=== PATIENT | male | born 1970 | race Caucasian/White ===

== ENCOUNTER 2024-09-06 16:43 | Inpatient (IN) | payer MEDICAID ==
[~2024-09-06] VITALS: Ht 182.9 cm; Wt 72.6 kg
[~2024-09-06 16:43] MED LIST: KEP500T PO; OLAN10TA40 PO; TRAZ-256 PO
[2024-09-06] MEDS ORDERED: potassium Cl 20 mEq SR tablet PO PRN ×2 (16:55)
[2024-09-06] MEDS ORDERED: mag hydrox/Alum hydrox/simeth 30ml oral suspension PO PRN (16:55)
[2024-09-06] MEDS ORDERED: potassium Cl 40MEQ/1/2NS 520ml 520 ML IV PRN (16:55)
[2024-09-06] MEDS ORDERED: magnesium sulf-water 4G/100mL 100 ML IV PRN (16:55)
[2024-09-06] MEDS ORDERED: magnesium hydroxide 30ml (MOM) UD suspension PO PRN (16:55)
[2024-09-06] MEDS ORDERED: ondansetron/PF 4mg/2ml inj IV PRN (16:55)
[2024-09-06] MEDS ORDERED: magnesium sulf-water 2g/50mL 50 ML IV PRN (16:55)
[2024-09-06] MEDS ORDERED: loperamide 2mg capsule PO PRN (17:15)
[2024-09-06 19:15] VITALS: BP 97/62; PULSE 83; RESP 20; TEMP 98.7; O2SAT 94
[2024-09-06 20:00] VITALS: RESP 15; O2SAT 97
[2024-09-06] MEDS: docusate sod 100mg capsule PO SCH ×2 (20:00→20:16)
[2024-09-06] MEDS: K and/or MAG REPLACEMENT MC SCH (20:00)
[2024-09-06 20:01] LABS: BASOPHILS # (AUTO) 0.1 X10'3 (0-0.2); BASOPHILS % (AUTO) 0.7 % (0-1); EOSINOPHILS # (AUTO) 0.3 X10'3 (0-0.9); HEMATOCRIT 38.9 % (42.0-52.0); HEMOGLOBIN 13.5 g/dl (14.0-17.9); LYMPHOCYTES # (AUTO) 2.2 X10'3 (1.1-4.8); LYMPHOCYTES % (AUTO) 29.2 % (21-51); MEAN CORPUSCULAR HGB CONC 34.7 g/dL (33.0-36.5); MEAN CORPUSCULAR VOLUME 83.4 FL (78-98); MEAN PLATELET VOLUME 6.9 FL (7.4-10.4); MONOCYTES # (AUTO) 0.5 X10'3 (0-0.9); MONOCYTES % (AUTO) 7.1 % (2-12); NEUTROPHILS # (AUTO) 4.5 X10'3 (1.8-7.7); PLATELET COUNT 298 X10'3 (140-440); RED BLOOD COUNT 4.67 X10'6 (4.70-6.10); RED CELL DISTRIBUTION WIDTH 14.4 % (11.5-14.5); WHITE BLOOD COUNT 7.6 X10'3 (4.5-11.0)
[2024-09-06] MEDS: levetiracetam 250mg tablet PO SCH (20:15)
[2024-09-06] MEDS: benztropine 1mg tablet PO SCH (20:15)
[2024-09-06] MEDS: traZODone 50mg tablet PO SCH (20:15)
[2024-09-06 20:16] LABS: ALANINE AMINOTRANSFERASE 12 U/L (12-78); ALBUMIN 3.4 G/DL (3.4-5.0); ALKALINE PHOSPHATASE 89 IU/L (46-116); ANION GAP 9 (8-16); ASPARTATE AMINO TRANSFERASE 19 U/L (10-37); BILIRUBIN,TOTAL 0.4 MG/DL (0.1-1.0); BLOOD UREA NITROGEN 16 MG/DL (7-18); BUN/CREATININE RATIO 19.3 (10.0-20.0); CALCIUM 8.2 MG/DL (8.5-10.1); CHLORIDE 102 MMOL/L (99-107); CREATINE KINASE 109 U/L (39-308); CREATININE 0.83 MG/DL (0.60-1.10); GLUCOSE 78 MG/DL (70-104); SODIUM 137 MMOL/L (135-145); TOTAL CARBON DIOXIDE 26.3 MMOL/L (24-32); TOTAL PROTEIN 6.7 G/DL (6.4-8.2); eGFR > 90 ML/MIN
[2024-09-06] MEDS: OLANZapine 2.5MG tablet PO SCH (20:16)
[2024-09-06 20:20] LABS: POTASSIUM 4.4 MMOL/L (3.5-5.1)
[2024-09-06] MEDS ORDERED: levetiracetam 250mg tablet PO SCH (21:00)
[2024-09-06 22:00] VITALS: BP 97/65; PULSE 71; RESP 16; TEMP 98.2; O2SAT 95
[2024-09-07] VITALS (7 sets, daily range): BP systolic 71–90; BP diastolic 42–52; PULSE 84–125; RESP 16; TEMP 98–99.5; O2SAT 94–96
[2024-09-07 06:12] LABS: BASOPHILS % (AUTO) 0.1 % (0-1); EOSINOPHILS # (AUTO) 0.1 X10'3 (0-0.9); EOSINOPHILS % (AUTO) 1.2 % (0-6); HEMOGLOBIN 15.8 g/dl (14.0-17.9); LYMPHOCYTES # (AUTO) 0.4 X10'3 (1.1-4.8); LYMPHOCYTES % (AUTO) 3.4 % (21-51); MEAN CORPUSCULAR HEMOGLOBIN 28.7 PG (27.0-31.0); MEAN CORPUSCULAR HGB CONC 34.3 g/dL (33.0-36.5); MEAN CORPUSCULAR VOLUME 83.7 FL (78-98); MEAN PLATELET VOLUME 7.3 FL (7.4-10.4); MONOCYTES # (AUTO) 0.3 X10'3 (0-0.9); MONOCYTES % (AUTO) 2.4 % (2-12); NEUTROPHILS # (AUTO) 10.6 X10'3 (1.8-7.7); NEUTROPHILS % (AUTO) 92.9 % (42-75); PLATELET COUNT 281 X10'3 (140-440); RED CELL DISTRIBUTION WIDTH 14.4 % (11.5-14.5); WHITE BLOOD COUNT 11.4 X10'3 (4.5-11.0)
[2024-09-07 06:31] LABS: ALANINE AMINOTRANSFERASE 18 U/L (12-78); ALBUMIN 3.7 G/DL (3.4-5.0); ALKALINE PHOSPHATASE 97 IU/L (46-116); ANION GAP 10 (8-16); ASPARTATE AMINO TRANSFERASE 6 U/L (10-37); BILIRUBIN,TOTAL 0.8 MG/DL (0.1-1.0); BLOOD UREA NITROGEN 17 MG/DL (7-18); BUN/CREATININE RATIO 16.3 (10.0-20.0); CALCIUM 8.7 MG/DL (8.5-10.1); CHLORIDE 105 MMOL/L (99-107); CREATININE 1.04 MG/DL (0.60-1.10); GLUCOSE 121 MG/DL (70-104); POTASSIUM 4.1 MMOL/L (3.5-5.1); SODIUM 140 MMOL/L (135-145); TOTAL CARBON DIOXIDE 25.4 MMOL/L (24-32); TOTAL PROTEIN 7.5 G/DL (6.4-8.2); eCRCL 83 ML/MIN; eGFR 74 ML/MIN
[2024-09-07] MEDS: nicotine 21mg patch - 24 hr TD SCH (08:00)
[2024-09-07] MEDS: acetaminophen 325mg tablet PO PRN (08:49)
[2024-09-07] MEDS: NICOTINE POLACRILEX 2 MG LOZENGE BC PRN (08:50)
[2024-09-07] MEDS: normal saline 1000ml 1,000 ML IV SCH ×2 (08:56→10:51)
[2024-09-07] MEDS: diphenhydrAMINE 50 mg/ml inj IV ONE (10:35)
[2024-09-07] MEDS: famotidine/PF 10 mg/ml inj IV ONE (10:35)
[2024-09-07] MEDS ORDERED: vancomycin inj 1,000 MG in normal saline 250ml IV soln 250 ML IV STA (14:25)
[2024-09-07 15:15] LABS: BILIRUBIN,URINE NEGATIVE (Neg); CLARITY,URINE CLEAR (Clear); COLOR,URINE YELLOW (Yellow); GLUCOSE, URINE NEGATIVE (Neg); KETONES,URINE NEGATIVE (Neg); LEUKOCYTE ESTERASE ,URINE NEGATIVE (Neg); NITRITES, URINE NEGATIVE (Neg); OCCULT BLOOD,URINE NEGATIVE (Neg); PROTEIN,URINE NEGATIVE (Neg); UROBILINOGEN,URINE 0.2 E.U/dL (0.2-1.0)
[2024-09-07 15:33] LABS: UA COLLECTION TYPE NON-SPECIFIED
[2024-09-07] MEDS: VANCOMYCIN 1.75GM/WATER FOR INJ (PEG) 350 ML IVPB IV ONE (15:50)
[2024-09-07] MEDS: piperacillin/tazo 4.5gm/100ml 100 ML IV SCH (16:39)
[2024-09-08] MEDS: vancomycin/NS 1 GM ADD-VANTAGE 250 ML IV SCH (04:13)
[2024-09-08 06:00] VITALS: BP 89/44; PULSE 98; RESP 16; TEMP 98.7; O2SAT 98
[2024-09-08 06:12] LABS: BASOPHILS % (AUTO) 0.1 % (0-1); EOSINOPHILS # (AUTO) 0.7 X10'3 (0-0.9); HEMATOCRIT 34.3 % (42.0-52.0); HEMOGLOBIN 11.7 g/dl (14.0-17.9); LYMPHOCYTES # (AUTO) 0.6 X10'3 (1.1-4.8); LYMPHOCYTES % (AUTO) 5.7 % (21-51); MEAN CORPUSCULAR HEMOGLOBIN 29.1 PG (27.0-31.0); MEAN CORPUSCULAR HGB CONC 34.3 g/dL (33.0-36.5); MEAN CORPUSCULAR VOLUME 84.9 FL (78-98); MEAN PLATELET VOLUME 6.9 FL (7.4-10.4); MONOCYTES # (AUTO) 0.3 X10'3 (0-0.9); MONOCYTES % (AUTO) 2.5 % (2-12); NEUTROPHILS # (AUTO) 9.5 X10'3 (1.8-7.7); NEUTROPHILS % (AUTO) 85.7 % (42-75); PLATELET COUNT 201 X10'3 (140-440); RED BLOOD COUNT 4.03 X10'6 (4.70-6.10); RED CELL DISTRIBUTION WIDTH 14.7 % (11.5-14.5)
[2024-09-08 06:47] LABS: ALANINE AMINOTRANSFERASE 13 U/L (12-78); ALBUMIN 2.5 G/DL (3.4-5.0); ALBUMIN/GLOBULIN RATIO 0.9 (1.1-1.5); ALKALINE PHOSPHATASE 59 IU/L (46-116); ANION GAP 7 (8-16); ASPARTATE AMINO TRANSFERASE 11 U/L (10-37); BILIRUBIN,TOTAL 0.8 MG/DL (0.1-1.0); BLOOD UREA NITROGEN 20 MG/DL (7-18); CALCIUM 7.8 MG/DL (8.5-10.1); CHLORIDE 105 MMOL/L (99-107); GLUCOSE 106 MG/DL (70-104); MAGNESIUM 1.6 MG/DL (1.5-2.4); POTASSIUM 3.9 MMOL/L (3.5-5.1); SODIUM 136 MMOL/L (135-145); TOTAL CARBON DIOXIDE 23.8 MMOL/L (24-32); TOTAL PROTEIN 5.3 G/DL (6.4-8.2); eCRCL 87 ML/MIN; eGFR 78 ML/MIN
[2024-09-08 10:00] VITALS: BP 82/43; PULSE 101; RESP 16; TEMP 98.7; O2SAT 97
[2024-09-08 10:30] VITALS: BP 84/43; PULSE 101; RESP 16; TEMP 98.7; O2SAT 97
[2024-09-08] MEDS: diphenhydrAMINE 25mg capsule PO PRN (12:03)
[2024-09-08] MEDS: midodrine tablet 2.5 MG TABLET PO SCH (12:03)
[2024-09-08 15:00] VITALS: BP 87/44; PULSE 91; RESP 16; O2SAT 98
[2024-09-08 18:00] VITALS: BP 104/68; PULSE 86; RESP 18; TEMP 98.8; O2SAT 100
[2024-09-08 22:00] VITALS: BP 96/47; PULSE 104; RESP 16; TEMP 99.6; O2SAT 93
[2024-09-09] MEDS: VANCOMYCIN LEVEL IV ONE (04:18)
[2024-09-09 06:00] VITALS: BP 94/48; PULSE 82; RESP 16; TEMP 99.2; O2SAT 94
[2024-09-09 07:31] LABS: BASOPHILS % (AUTO) 0.1 % (0-1); EOSINOPHILS # (AUTO) 0.8 X10'3 (0-0.9); EOSINOPHILS % (AUTO) 9.9 % (0-6); HEMATOCRIT 31.6 % (42.0-52.0); HEMOGLOBIN 11.2 g/dl (14.0-17.9); LYMPHOCYTES # (AUTO) 0.8 X10'3 (1.1-4.8); LYMPHOCYTES % (AUTO) 9.3 % (21-51); MEAN CORPUSCULAR HGB CONC 35.4 g/dL (33.0-36.5); MEAN CORPUSCULAR VOLUME 84.9 FL (78-98); MEAN PLATELET VOLUME 7.1 FL (7.4-10.4); MONOCYTES # (AUTO) 0.3 X10'3 (0-0.9); MONOCYTES % (AUTO) 4.1 % (2-12); NEUTROPHILS # (AUTO) 6.3 X10'3 (1.8-7.7); NEUTROPHILS % (AUTO) 76.6 % (42-75); PLATELET COUNT 199 X10'3 (140-440); RED BLOOD COUNT 3.73 X10'6 (4.70-6.10); RED CELL DISTRIBUTION WIDTH 14.2 % (11.5-14.5); WHITE BLOOD COUNT 8.2 X10'3 (4.5-11.0)
[2024-09-09 07:57] LABS: ALANINE AMINOTRANSFERASE 13 U/L (12-78); ALBUMIN 2.4 G/DL (3.4-5.0); ALBUMIN/GLOBULIN RATIO 0.7 (1.1-1.5); ALKALINE PHOSPHATASE 60 IU/L (46-116); ANION GAP 5 (8-16); ASPARTATE AMINO TRANSFERASE 12 U/L (10-37); BILIRUBIN,TOTAL 0.6 MG/DL (0.1-1.0); BLOOD UREA NITROGEN 7 MG/DL (7-18); CALCIUM 7.7 MG/DL (8.5-10.1); CHLORIDE 107 MMOL/L (99-107); CREATININE 0.78 MG/DL (0.60-1.10); GLUCOSE 90 MG/DL (70-104); POTASSIUM 3.6 MMOL/L (3.5-5.1); SODIUM 139 MMOL/L (135-145); TOTAL CARBON DIOXIDE 27.5 MMOL/L (24-32); TOTAL PROTEIN 5.9 G/DL (6.4-8.2); eCRCL 111 ML/MIN; eGFR > 90 ML/MIN
[2024-09-09 08:01] LABS: MAGNESIUM 1.7 MG/DL (1.5-2.4); VANCOMYCIN,TROUGH 24.2 ug/mL (10.0-20.0)
[2024-09-09 10:00] VITALS: BP 100/56; PULSE 89; RESP 16; TEMP 97.9; O2SAT 99
[2024-09-09] MEDS ORDERED: VANCOMYCIN/WATER FOR INJ (PEG) 750MG/150 ML IVPB IV SCH (16:00)
[2024-09-09 18:00] VITALS: BP 98/58; PULSE 70; RESP 18; TEMP 97.9; O2SAT 97
[2024-09-09 20:00] VITALS: RESP 18; O2SAT 97
[2024-09-09 22:00] VITALS: BP 95/44; PULSE 82; RESP 18; TEMP 98; O2SAT 95
[2024-09-09 22:30] VITALS: BP 105/60
[2024-09-10 06:00] VITALS: BP 90/46; PULSE 66; RESP 18; TEMP 97.6; O2SAT 94
[2024-09-10 07:39] LABS: BASOPHILS % (AUTO) 0.1 % (0-1); EOSINOPHILS # (AUTO) 0.8 X10'3 (0-0.9); HEMATOCRIT 32.9 % (42.0-52.0); HEMOGLOBIN 11.4 g/dl (14.0-17.9); LYMPHOCYTES % (AUTO) 14.3 % (21-51); MEAN CORPUSCULAR HEMOGLOBIN 29.5 PG (27.0-31.0); MEAN CORPUSCULAR HGB CONC 34.6 g/dL (33.0-36.5); MEAN CORPUSCULAR VOLUME 85.1 FL (78-98); MEAN PLATELET VOLUME 6.9 FL (7.4-10.4); MONOCYTES # (AUTO) 0.4 X10'3 (0-0.9); MONOCYTES % (AUTO) 5.9 % (2-12); NEUTROPHILS # (AUTO) 4.7 X10'3 (1.8-7.7); NEUTROPHILS % (AUTO) 68.7 % (42-75); PLATELET COUNT 226 X10'3 (140-440); RED BLOOD COUNT 3.87 X10'6 (4.70-6.10); RED CELL DISTRIBUTION WIDTH 14.5 % (11.5-14.5); WHITE BLOOD COUNT 6.9 X10'3 (4.5-11.0)
[2024-09-10 08:24] LABS: ALANINE AMINOTRANSFERASE 14 U/L (12-78); ALBUMIN 2.7 G/DL (3.4-5.0); ALBUMIN/GLOBULIN RATIO 0.9 (1.1-1.5); ALKALINE PHOSPHATASE 68 IU/L (46-116); ANION GAP 6 (8-16); ASPARTATE AMINO TRANSFERASE 10 U/L (10-37); BILIRUBIN,TOTAL 0.4 MG/DL (0.1-1.0); BLOOD UREA NITROGEN 7 MG/DL (7-18); BUN/CREATININE RATIO 9.9 (10.0-20.0); CHLORIDE 106 MMOL/L (99-107); CREATININE 0.71 MG/DL (0.60-1.10); GLUCOSE 93 MG/DL (70-104); MAGNESIUM 1.9 MG/DL (1.5-2.4); POTASSIUM 3.6 MMOL/L (3.5-5.1); SODIUM 140 MMOL/L (135-145); TOTAL CARBON DIOXIDE 27.8 MMOL/L (24-32); TOTAL PROTEIN 5.8 G/DL (6.4-8.2); eCRCL 122 ML/MIN; eGFR > 90 ML/MIN
[2024-09-10 10:00] VITALS: BP 107/68; PULSE 75; RESP 20; TEMP 98.2; O2SAT 96
[2024-09-10 18:00] VITALS: BP 108/66; PULSE 67; RESP 16; TEMP 98; O2SAT 95
[2024-09-10 20:00] VITALS: RESP 16; O2SAT 95
[2024-09-10 22:00] VITALS: BP 90/47; PULSE 74; RESP 18; TEMP 98; O2SAT 95
[2024-09-10 22:30] VITALS: BP 95/50
[2024-09-11] MEDS ORDERED: VANCOMYCIN LEVEL IV ONE (03:30)
[2024-09-11 06:00] VITALS: BP 86/47; PULSE 67; RESP 18; TEMP 97.6; O2SAT 99
[2024-09-11 07:10] LABS: BASOPHILS # (AUTO) 0.1 X10'3 (0-0.2); BASOPHILS % (AUTO) 0.8 % (0-1); EOSINOPHILS # (AUTO) 0.8 X10'3 (0-0.9); EOSINOPHILS % (AUTO) 12.7 % (0-6); HEMATOCRIT 35.9 % (42.0-52.0); HEMOGLOBIN 12.2 g/dl (14.0-17.9); LYMPHOCYTES # (AUTO) 1.8 X10'3 (1.1-4.8); LYMPHOCYTES % (AUTO) 28.5 % (21-51); MEAN CORPUSCULAR HGB CONC 33.9 g/dL (33.0-36.5); MEAN CORPUSCULAR VOLUME 85.4 FL (78-98); MEAN PLATELET VOLUME 7.3 FL (7.4-10.4); MONOCYTES # (AUTO) 0.3 X10'3 (0-0.9); MONOCYTES % (AUTO) 5.2 % (2-12); NEUTROPHILS # (AUTO) 3.4 X10'3 (1.8-7.7); NEUTROPHILS % (AUTO) 52.8 % (42-75); PLATELET COUNT 269 X10'3 (140-440); RED BLOOD COUNT 4.21 X10'6 (4.70-6.10); RED CELL DISTRIBUTION WIDTH 14.7 % (11.5-14.5); WHITE BLOOD COUNT 6.4 X10'3 (4.5-11.0)
[2024-09-11 07:28] LABS: ALANINE AMINOTRANSFERASE 14 U/L (12-78); ALBUMIN 2.8 G/DL (3.4-5.0); ALBUMIN/GLOBULIN RATIO 0.8 (1.1-1.5); ALKALINE PHOSPHATASE 68 IU/L (46-116); ANION GAP 7 (8-16); ASPARTATE AMINO TRANSFERASE 10 U/L (10-37); BILIRUBIN,TOTAL 0.4 MG/DL (0.1-1.0); BLOOD UREA NITROGEN 7 MG/DL (7-18); CALCIUM 8.4 MG/DL (8.5-10.1); CHLORIDE 106 MMOL/L (99-107); GLUCOSE 92 MG/DL (70-104); POTASSIUM 3.9 MMOL/L (3.5-5.1); SODIUM 142 MMOL/L (135-145); TOTAL CARBON DIOXIDE 29.1 MMOL/L (24-32); TOTAL PROTEIN 6.2 G/DL (6.4-8.2); VANCOMYCIN,TROUGH 1.6 ug/mL (10.0-20.0); eCRCL 124 ML/MIN; eGFR > 90 ML/MIN
[2024-09-11 08:00] VITALS: RESP 18; O2SAT 99
[2024-09-11] MEDS: midodrine 5mg tablet PO SCH (09:26)
[2024-09-11 10:00] VITALS: BP 110/66; PULSE 80; RESP 18; TEMP 98.5; O2SAT 96
[2024-09-11 18:00] VITALS: BP 112/65; PULSE 63; RESP 18; TEMP 98.3; O2SAT 95
[2024-09-11 20:00] VITALS: RESP 18; O2SAT 95
[2024-09-11 22:00] VITALS: BP 98/53; PULSE 67; RESP 14; TEMP 97.7; O2SAT 95
[2024-09-12 06:00] VITALS: BP 91/56; PULSE 60; RESP 14; TEMP 98.7; O2SAT 95
[2024-09-12 08:00] VITALS: RESP 14; O2SAT 95
[2024-09-12 10:00] VITALS: BP 111/70; PULSE 87; RESP 18; TEMP 98.6; O2SAT 95
[2024-09-12 18:00] VITALS: BP 102/58; PULSE 67; RESP 18; TEMP 98.7; O2SAT 95
[2024-09-12 20:00] VITALS: RESP 18; O2SAT 95
[2024-09-12 22:00] VITALS: BP 88/57; PULSE 65; RESP 16; TEMP 97.7; O2SAT 95
[2024-09-13 08:00] VITALS: RESP 18; O2SAT 91
[2024-09-13 18:00] VITALS: BP 116/74; PULSE 64; RESP 16; TEMP 98.6; O2SAT 100
[2024-09-13 20:00] VITALS: RESP 16; O2SAT 100
[2024-09-13 22:00] VITALS: BP_SYST 114; BP_SYST 98; BP_DIAS 64; BP_DIAS 66; PULSE 76; PULSE 77; RESP 16; RESP 18; TEMP 97.9; TEMP 98.3; O2SAT 94; O2SAT 98
[2024-09-14 06:00] VITALS: BP 87/53; PULSE 75; RESP 16; TEMP 98.8; O2SAT 94
[2024-09-14 08:00] VITALS: RESP 16; O2SAT 94
[2024-09-14 08:19] LABS: BASOPHILS # (AUTO) 0.2 X10'3 (0-0.2); BASOPHILS % (AUTO) 1.8 % (0-1); EOSINOPHILS # (AUTO) 0.7 X10'3 (0-0.9); EOSINOPHILS % (AUTO) 7.9 % (0-6); HEMATOCRIT 42.1 % (42.0-52.0); HEMOGLOBIN 14.4 g/dl (14.0-17.9); LYMPHOCYTES # (AUTO) 2.6 X10'3 (1.1-4.8); MEAN CORPUSCULAR HGB CONC 34.2 g/dL (33.0-36.5); MEAN CORPUSCULAR VOLUME 84.6 FL (78-98); MEAN PLATELET VOLUME 6.6 FL (7.4-10.4); MONOCYTES # (AUTO) 0.5 X10'3 (0-0.9); MONOCYTES % (AUTO) 5.1 % (2-12); NEUTROPHILS # (AUTO) 5.3 X10'3 (1.8-7.7); NEUTROPHILS % (AUTO) 57.2 % (42-75); PLATELET COUNT 329 X10'3 (140-440); RED BLOOD COUNT 4.97 X10'6 (4.70-6.10); RED CELL DISTRIBUTION WIDTH 14.4 % (11.5-14.5); WHITE BLOOD COUNT 9.3 X10'3 (4.5-11.0)
[2024-09-14 10:00] VITALS: BP 97/60; PULSE 69; RESP 16; TEMP 97.9; O2SAT 97
[2024-09-14 18:00] VITALS: BP 102/65; PULSE 67; RESP 16; TEMP 97.9; O2SAT 98
[2024-09-14 22:00] VITALS: BP 93/48; PULSE 84; RESP 18; TEMP 97.9; O2SAT 96
[2024-09-15 06:00] VITALS: BP 88/61; PULSE 67; RESP 16; TEMP 97.8; O2SAT 93
[2024-09-15 08:00] VITALS: RESP 16; O2SAT 93
[2024-09-15 10:00] VITALS: BP 153/109; PULSE 74; RESP 18; TEMP 98; O2SAT 94
[2024-09-15] MEDS ORDERED: BENZ2TAB66 PO (10:53)
[2024-09-15] MEDS ORDERED: NICO-687 TD (10:53)
[2024-09-15] MEDS ORDERED: LEVE500T PO (10:53)
[2024-09-15] MEDS ORDERED: MIDO10TA3 PO (10:53)
[2024-09-15] MEDS ORDERED: OLAN20TA81 PO (10:53)
[2024-09-15] MEDS ORDERED: NICO-907 BC (10:53)
[2024-09-15] MEDS ORDERED: TRAZ-256 PO (10:53)
[2024-09-15 18:00] VITALS: BP 103/63; PULSE 64; RESP 16; TEMP 97.7; O2SAT 100
[2024-09-15 19:59] LABS: ALANINE AMINOTRANSFERASE 14 U/L (12-78); ALBUMIN 3.5 G/DL (3.4-5.0); ALKALINE PHOSPHATASE 78 IU/L (46-116); ANION GAP 9 (8-16); ASPARTATE AMINO TRANSFERASE 14 U/L (10-37); BILIRUBIN,TOTAL 0.5 MG/DL (0.1-1.0); BLOOD UREA NITROGEN 20 MG/DL (7-18); BUN/CREATININE RATIO 26.3 (10.0-20.0); CHLORIDE 91 MMOL/L (99-107); CREATININE 0.76 MG/DL (0.60-1.10); GLUCOSE 157 MG/DL (70-104); POTASSIUM 3.9 MMOL/L (3.5-5.1); SODIUM 128 MMOL/L (135-145); eCRCL 114 ML/MIN; eGFR > 90 ML/MIN
[2024-09-15 20:00] VITALS: RESP 18; O2SAT 100
[2024-09-15 22:00] VITALS: BP 106/70; PULSE 86; RESP 18; TEMP 97.9; O2SAT 97
[2024-09-16 06:00] VITALS: BP 92/57; PULSE 66; RESP 16; TEMP 98; O2SAT 95
[2024-09-16] MEDS: normal saline 1000ml 1,000 ML IV SCH (09:00)
[2024-09-16 09:15] VITALS: RESP 16; O2SAT 95
[2024-09-16 10:00] VITALS: BP 102/63; PULSE 78; RESP 16; TEMP 98.4; O2SAT 99
[2024-09-16 18:00] VITALS: BP 99/60; PULSE 62; RESP 14; TEMP 97.7; O2SAT 96
[2024-09-16] MEDS: olanzapine 10mg tablet PO SCH (21:20)
[2024-09-17 06:00] VITALS: BP 141/83; PULSE 80; RESP 16; TEMP 97.7; O2SAT 96
[2024-09-17 08:05] LABS: ALBUMIN 3.2 G/DL (3.4-5.0); ANION GAP 8 (8-16); BLOOD UREA NITROGEN 14 MG/DL (7-18); BUN/CREATININE RATIO 18.7 (10.0-20.0); CALCIUM 8.1 MG/DL (8.5-10.1); CHLORIDE 106 MMOL/L (99-107); CREATININE 0.75 MG/DL (0.60-1.10); GLUCOSE 82 MG/DL (70-104); POTASSIUM 3.7 MMOL/L (3.5-5.1); SODIUM 142 MMOL/L (135-145); eCRCL 116 ML/MIN; eGFR > 90 ML/MIN
[2024-09-17 09:35] VITALS: RESP 16; O2SAT 96
[2024-09-17 10:00] VITALS: BP 104/65; PULSE 64; RESP 16; TEMP 98; O2SAT 98
[2024-09-17 18:00] VITALS: BP 103/66; PULSE 65; RESP 16; TEMP 98.4; O2SAT 98
[2024-09-17 20:00] VITALS: RESP 16; O2SAT 98
[2024-09-17 22:00] VITALS: BP 85/52; PULSE 76; RESP 16; TEMP 98.7; O2SAT 94
[2024-09-18 01:50] VITALS: O2SAT 98
[2024-09-18 06:00] VITALS: BP 138/76; PULSE 86; RESP 16; TEMP 97.7; O2SAT 94
[2024-09-18 10:00] VITALS: BP 89/56; PULSE 64; RESP 20; TEMP 98; O2SAT 98
[2024-09-18 18:00] VITALS: BP 103/66; PULSE 58; RESP 20; TEMP 97.7; O2SAT 97
[2024-09-18 20:00] VITALS: RESP 16; O2SAT 98
[2024-09-18 22:00] VITALS: BP 85/44; PULSE 62; RESP 16; TEMP 97.5; O2SAT 95
[2024-09-19] VITALS (8 sets, daily range): BP systolic 76–101; BP diastolic 43–54; PULSE 53–75; RESP 14–18; TEMP 97.8–99.3; O2SAT 95–97
[2024-09-20 06:00] VITALS: BP 79/48; PULSE 64; RESP 15; TEMP 98.5; O2SAT 95
[2024-09-20 08:00] VITALS: RESP 13; O2SAT 96
[2024-09-20] MEDS: normal saline 1000ml 1,000 ML IV ONE (09:20)
[2024-09-20 10:00] VITALS: BP 91/52; PULSE 65; RESP 13; TEMP 98.5; O2SAT 96
[2024-09-20 18:00] VITALS: BP 93/42; PULSE 53; RESP 16; TEMP 98; O2SAT 99
== END 2024-09-20 18:00 | disposition home or self-care (01) | DRG 53 ==
LOC: ORTHO 4S 16:59
PROVIDERS: ADMIT Family Medicine; ATTEND Family Medicine
PROC: 4A00X4Z Measurement of Central Nervous Electrical Activity, External Approach (ICD-10-PCS; principal; 2024-09-07)
DX: G40.909 Epilepsy, unspecified, not intractable, without status epilepticus (principal); G04.90 Encephalitis and encephalomyelitis, unspecified; E87.1 Hypo-osmolality and hyponatremia; F90.9 Attention-deficit hyperactivity disorder, unspecified type; G24.01 Drug induced subacute dyskinesia; R32 Unspecified urinary incontinence; E86.0 Dehydration; Z79.899 Other long term (current) drug therapy; Z88.8 Allergy status to other drugs, medicaments and biological substances; Z72.0 Tobacco use
CPT/HCPCS: 36415; 70470; 71045; 80048; 80053; 80202; 81003; 82550; 83605; 83735; 84145; 85025; 87040; 87070; 87081; 87502; 87503; 87811; 95813; 97110; 97116; 97161; A6258; G0378; J1200; J2405; J2543; J3370; J3372; J3490; J7030; Q0163

== ENCOUNTER 2025-02-10 18:16 | Emergency (ER) | payer MEDICAID ==
[~2025-02-10] VITALS: Ht 190.5 cm; Wt 58.1 kg
[~2025-02-10 18:16] MED LIST changes: +BENZ2TAB66 PO; -KEP500T PO; +LEVE500T PO; +MIDO10TA3 PO; -OLAN10TA40 PO; +OLAN20TA81 PO
[2025-02-10 18:17] VITALS: BP 127/98; PULSE 103; RESP 15; TEMP 96.8; O2SAT 99
--- NOTE | 2025-02-10 18:24 | Physician Documentation ---
History of Present Illness ~ General Chief Complaint: General Stated Complaint: GENERAL Time Seen by MD: 18:23 History of Present Illness Initial Comments If you are year old male with a presents to the emergency department to use the restroom. Patient is currently a transient gentleman with no other place use the restroom he stopped into the ER requested to use the restroom he has no need for evaluation no injury or illness currently at this time. Patient denies any concerns. Medication Reconciliation Allergies: Coded Allergies: ceftriaxone (Verified Allergy, Severe, 02/10/25) SJS, Rash phenobarbital (Verified Allergy, Severe, 02/10/25) Rash divalproex sodium (Verified Adverse Reaction, Mild, 02/10/25) Loss of fingernails and toenails Scheduled Benztropine Mesylate (Benztropine Mesylate), 1 TABLET PO BID Levetiracetam (Levetiracetam), 2 TAB PO Q12H Midodrine Hcl (Midodrine Hcl), 1 TAB PO Q8H Olanzapine (Olanzapine), 1 TAB PO HS Trazodone HCl (Trazodone HCl), 1 TAB PO HS Past Medical History Patient History: Patient reports no known family medical history. Drug Use: marijuana Review of Systems All Other Systems at this time: Reviewed and Negative ROS As stated above in the HPI, otherwise all systems are reviewed and negative. Physical Exam Physical Exam Vital Signs: Temperature: 96.8, Source: Temporal, Heart Rate: 103, Respiratory Rate: 15, BP: 127/98, Pulse Oximetry: 99, Weight: 58.100 Physical Exam VITALS: Reviewed and as above. GENERAL: Alert, no apparent distress. HEENT: Normocephalic, atraumatic, PERRL, EOMI, dry mucosa, no erythema RESPIRATORY: Lungs clear, normal breath sounds, no respiratory distress. CHEST: No accessory muscle use, no retractions CV: Regular rate, rhythm, no edema, no murmur, No: JVD GI: Soft, non-tender, bowels sounds present, no rebound, guarding, or rigidity BACK: No CVA tenderness, or swelling MUSCULOSKELETAL No deformities, no edema SKIN: Warm and dry, no rash NEURO: Oriented x4, No motor or sensory deficit PSYCH: Normal mood and affect, no agitation Progress Results/Orders Results/Orders Vital Signs 02/10/25 18:17 Temp 96.8 Pulse 103 Resp 15 B/P (MAP) 127/98 Pulse Ox 99 Departure Disposition: HOME / SELF CARE / HOMELESS Impression: Primary Impression: General medical exam Condition: Stable Referrals: NO PRIMARY CARE PROVIDER (PCP) Education Educated: Patient Educated regarding: other Signature Scribe Signature: . Attestation: Scribed for [facility] by NAI Chen . 02/10/25 18:26 TINY LARIOSP Feb 10, 2025 18:24
== END 2025-02-10 18:32 | disposition home or self-care (01) ==
LOC: ER 18:17
DX: Z00.00 Encounter for general adult medical examination without abnormal findings (principal); F12.90 Cannabis use, unspecified, uncomplicated; Z88.1 Allergy status to other antibiotic agents; Z88.8 Allergy status to other drugs, medicaments and biological substances; Z79.899 Other long term (current) drug therapy
CPT/HCPCS: 99282